=== PATIENT | male | born 1955 | race Caucasian/White ===

== ENCOUNTER 2016-06-24 10:12 | Emergency (ER) | payer OTHER ==
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
== END 2016-06-24 10:24 | disposition home or self-care (01) ==
LOC: CED 10:12
DX: S01.112A Laceration without foreign body of left eyelid and periocular area, initial encounter (principal); S13.9XXA Sprain of joints and ligaments of unspecified parts of neck, initial encounter; Z88.0 Allergy status to penicillin; V43.92XA Unspecified car occupant injured in collision with other type car in traffic accident, initial encounter
CPT/HCPCS: 72125; 99284